=== PATIENT | male | born 1990 | race American Indian/Alaskan Native ===

== ENCOUNTER 2016-08-20 20:01 | Emergency (ER) | payer BC, MEDICARE, MEDICAID ==
[2016-08-20 20:34] VITALS: TEMP 98.7
--- NOTE | 2016-08-20 20:50 | C.PDOC ---
History Of Present Illness The patient, a 26 y/o male with Autism Spectrum Disorder, presents to the ED with father who is requesting medication refill. As per father, patient takes Xanax 3 times/day as prescribed by his PMD. Patient received a medication refill for 90 tablets of Xanax on 07/28. Father states patient ran out of all of his tablets earlier this week and believes the pharmacist dispensed around 30 pills less than the prescribed amount. Father states patient's pharmacist was able to supply him with 2-3 days worth of pills of Xanax as an emergency; father now presents to the ED requesting a Xanax tablet for tonight. Otherwise, he denies fever, chills, or physical complaints on behalf of patient at this time. Time Seen by Provider: 08/20/16 20:33 Chief Complaint (Nursing): Med Refill History Per: Patient, Family History/Exam Limitations: no limitations Onset/Duration Of Symptoms: Hrs Current Symptoms Are (Timing): Still Present Additional History Per: Patient, Family Past Medical History Reviewed: Historical Data, Nursing Documentation, Vital Signs Vital Signs: Last Vital Signs Temp 98.7 F 08/20/16 21:40 Pulse 80 08/20/16 21:40 Resp 15 08/20/16 21:40 BP 124/80 08/20/16 21:40 Pulse Ox 100 08/20/16 22:13 Surgical History: No Surg Hx Family History: States: Unknown Family Hx - Social History Hx Alcohol Use: No Hx Substance Use: No - Immunization History Hx Tetanus Toxoid Vaccination: Yes Hx Influenza Vaccination: Yes Hx Pneumococcal Vaccination: No Review Of Systems Constitutional: Negative for: Fever, Chills Psych: Positive for: Other (+medication refill ) Physical Exam - Physical Exam Appears: Non-toxic, No Acute Distress Skin: Normal Color, Warm, Dry Head: Atraumatic Eye(s): bilateral: Normal Inspection Oral Mucosa: Moist Neck: Supple Chest: Symmetrical, No Deformity, No Tenderness Cardiovascular: Rhythm Regular, No Murmur Respiratory: Normal Breath Sounds, No Rales, No Rhonchi, No Wheezing Extremity: Normal ROM, Capillary Refill (less than 2 seconds ) Neurological/Psych: Other (awake, alert, acting appropriate to baseline ) Gait: Steady ED Course And Treatment O2 Sat by Pulse Oximetry: 100 (on RA) Pulse Ox Interpretation: Normal Medical Decision Making Medical Decision Making: Plan: * Xanax PO * reassess and disposition Progress: Patient received Xanax PO. On reassessment, patient is resting comfortably, showing no signs of distress, and is stable for discharge. Caregiver is advised to follow up with patient's PMD within a timely manner for medication refill and further evaluation. Disposition - Disposition Referrals: Yasmine Li MD [Staff Provider] - Disposition: HOME/ ROUTINE Disposition Time: 21:26 Condition: STABLE Additional Instructions: Follow up with Dr Li tomorrow for refilll of medications. Forms: General Discharge Instructions - Clinical Impression Clinical Impression: Autism - PA / [employer] / Resident Statement MD/DO has reviewed & agrees with the documentation as recorded. - Scribe Statement The provider has reviewed the documentation as recorded by the Scribe (Zahraa Clay) All medical record entries made by the Scribe were at my direction and personally dictated by me. I have reviewed the chart and agree that the record accurately reflects my personal performance of the history, physical exam, medical decision making, and the department course for this patient. I have also personally directed, reviewed, and agree with the discharge instructions and disposition.
[2016-08-20 21:41] VITALS: BP 124/80; PULSE 80; RESP 15
[2016-08-20 22:01] VITALS: O2SAT 100
== END 2016-08-20 21:41 | disposition home or self-care (01) ==
LOC: C.ER 20:01
DX: F84.0 Autistic disorder (principal)